=== PATIENT | male | born 1950 | race Caucasian/White ===

== ENCOUNTER 2024-11-01 04:22 | Observation (INO) ==
--- NOTE | 2024-11-01 04:30 | Emergency Department Note ---
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 They report they were concerned due to the patient's history where he was diagnosed with hemorrhagic stroke but his only symptom was feeling slight neck pain at the time. Otherwise patient denies any fevers, chills, cough, congestion, chest pain or shortness of breath. On evaluation the patient no acute distress, afebrile with heart in the 110s and vital signs otherwise stable. He appears clinically dry. Exhibits no focal neurologic deficits. EKG demonstrates atrial fibrillation in the 100s without overt acute ischemia. Chest x-ray negative for acute cardiopulmonary process per my preliminary independent or potation. WBC, H/H and platelets within normal limits. Chemistry without metabolic acidosis. Electrolytes and LFTs without significant abnormality. High- sensitivity troponin 4.6, within normal limits. Lipase is normal. TSH within normal limits. UA without evidence of infection. CT of the head was performed and was negative for acute abnormalities evidence of prior IPH with encephalomalacia is noted. Given the patient's new onset atrial fibrillation in setting of his history of hypertension and IPH the patient and his daughter agree with plan for admission for further management. Case was discussed with Dr. Cottrell, [facility] [place] hospitalist, who will evaluate the patient for admission. Further management and consideration of anticoagulation per admitting team. Triage Nursing notes reviewed and agree them. Prior/external medical records reviewed Vital Signs: reviewed Differential diagnosis: Premature contractions, electrolyte abnormality, cardiac dysrhythmia, thyroid dysfunction, pulmonary embolism, infection, gastrointestinal, as well as other pathologies. ER treatment provided: See below. Diagnostics interpreted by me: ECG 0425: Atrial fibrillation with RVR, 103 bpm, no ectopy, no overt ST elevation or depression, QTc 440, QRS 84. ECG 0623:Atrial fibrillation 89 bpm, no ectopy, no overt ST elevation or depression, QTc 428, QRS 86. Cardiac Monitoring: An order for continuous cardiac monitoring was placed and demonstrated atrial fibrillation, RVR, 103 bpm, no ectopy. Laboratory studies: See below Imaging studies: See below Consultation(s): Dr. Cottrell, [facility] [place] hospitalist. HPI: Per MDM. ROS: See above HPI for pertinent positives & negatives. A total of 10 systems reviewed and were otherwise negative. VITALS:See Below PHYSICAL EXAMINATION: GENERAL: Awake, alert, well-appearing, in no distress HENT: Normocephalic, atraumatic. Oropharynx with dry mucous membranes and otherwise unremarkable. EYES: Normal conjunctiva. Sclera non-icteric. NECK: Supple. No nuchal rigidity. FROM. No JVD. RESPIRATORY: Clear to auscultation. CARDIAC: Tachycardic rate, irregular rhythm. Extremities warm and well perfused. Pulses equal. ABDOMEN: Soft, non-distended. No tenderness to palpation. No rebound or guarding. No masses. MUSCULOSKELETAL: Chest examination reveals no tenderness. The back is symmetrical on inspection without obvious abnormality. There is no CVA tenderness to palpation. No joint edema. LOWER EXTREMITIES: Calves are equal size bilaterally and non-tender. No edema. No discoloration. NEURO: Cranial nerves II-XII grossly intact. 5/5 strength and SILT x 4 extremities. Cerebellar function intact including [id number], alternating palms. SKIN: No rash or jaundice noted. Leon Tolliver MD Past Med/Surg History Problem List (Updated 11/01/24 @ 16:50 by Leon Tolliver MD) Atrial fibrillation with rapid ventricular response (Acute) Hypertension (Acute) Atrial fibrillation, new onset (Acute) Positive colorectal cancer screening using Cologuard test Mitral regurgitation Premature atrial contractions Hypertension Hyperlipidemia Urinary hesitancy (Acute) Medical History Hyperlipidemia diet controlled, "good currently" Hypertension Premature atrial contractions f/u travis can cardio. 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 Ended up being an intraparenchymal hematoma" H/O detached retina repair 2015, right eye H/O non-cataract eye surgery laser surgery on each eye in dr's office Status post cataract surgery duplicate Family History (Updated 11/01/24 @ 08:00 by Karsten Cottrell MD) Mother , age 92 Dementia Wernicke-Korsakoff syndrome Alcohol dependence Father Cancer Brother Parkinson disease Denies family history of Ovarian cancer Prostate cancer Cerebral aneurysm Myocardial infarction Breast cancer Colorectal cancer Social History (Updated 11/01/24 @ 08:01 by Karsten Cottrell MD) Smoking Status: Light tobacco smoker Tobacco Type: Pipe and Smokeless Tobacco (Dip or Chew) Age Started Using Tobacco: 19; Cigarettes Per Day: occasional; Second Hand Exposure: Yes (hx as child); Do You Dip or Chew Tobacco: Yes (advised); Hx Alcohol Use: No Hx Substance Use: No Preferred Language: Kazakh Communication Ability: Effective Visual Impairment: No Limitations Hearing Ability: Normal Phlebotomy Director Required: No Beliefs That Will Affect Care: None marital status: Current Living Situation: Spouse current occupational status: retired 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 [employer] How many Children do You have: 2 Other Information That Helps Us Care for You: No Feels Safe at Home: Yes Safety Concerns: Feels Safe At This Time Childhood Exposure to Second-Hand Smoke: Yes Diet: regular Dental Care, Regularly: Yes Physical Activity Frequency: Daily Physical Activity Frequency Comment: weight lifting, walking Seatbelt Use: always Sunscreen Use: No Assistive Devices: Glasses Allergies Allergies Allergy/AdvReac Type Severity Reaction Status Date / Time No Known Allergies Allergy Verified 08/03/24 09:55 Home Meds Home Medications Medication Instructions Recorded Confirmed amlodipine 5 mg tablet 5 mg PO QAM 03/03/24 11/01/24 Previous Rx's Medication Instructions Recorded meclizine 25 mg tablet 25 mg PO TID PRN dizziness #30 tabs 05/09/24 metoprolol succinate 25 mg 25 mg PO QAM #90 tabs 08/03/24 tablet,extended release 24 hr Results & Data (ED) Vital Signs Vital Signs - 24 hr 11/01/24 04:25 11/01/24 04:30 11/01/24 04:31 Temperature 36.5 C Temperature Source Oral Pulse Rate 118 H 111 H 116 H Pulse Rate [Apical] Pulse Rhythm Regular Pulse Rhythm [Apical] Pulse Strength [Apical] Respiratory Rate 16 18 Respiratory Effort / Characteristics Non-Labored Spontaneous Respiratory Depth Normal Respiratory Pattern Regular Blood Pressure 140/86 Blood Pressure [Right Arm] Blood Pressure Mean 104 Blood Pressure Mean [Right Arm] Pulse Oximetry 100 99 Oxygen Delivery Method Room Air Room Air Sepsis Recent Fever Within 48 Hours No Sepsis New/Unexplained Change in Mental Status N/A Sepsis Action Taken by Nursing No Action Required 11/01/24 04:40 11/01/24 06:16 11/01/24 07:03 Temperature Temperature Source Pulse Rate Pulse Rate [Apical] 85 104 H Pulse Rhythm Pulse Rhythm [Apical] Regular Pulse Strength [Apical] Normal Respiratory Rate 16 20 Respiratory Effort / Characteristics Non-Labored Spontaneous Non-Labored Respiratory Depth Normal Normal Respiratory Pattern Blood Pressure Blood Pressure [Right Arm] 121/88 135/86 Blood Pressure Mean Blood Pressure Mean [Right Arm] 99 102 Pulse Oximetry 100 100 94 Oxygen Delivery Method Room Air Room Air Sepsis Recent Fever Within 48 Hours Sepsis New/Unexplained Change in Mental Status Sepsis Action Taken by Nursing Laboratory Data Attestation: I reviewed the patient's lab results. 11/01/24 04:28 11/01/24 04:28 Lab Results 11/01/24 11/01/24 11/01/24 Range/Units 04:25 04:28 04:40 WBC 6.23 (4.8-10.8) K/ul RBC 6.36 H (4.70-6.10) M/uL Hgb 17.3 (14.0-18.0) g/dl POC Hgb 17.7 (14.0-18.0) g/dl Hct 51.3 (42.0-52.0) % POC Hct 52 (42-52) % MCV 80.7 (80.0-100.0) fL MCH 27.2 (25.0-34.0) pg MCHC 33.7 (32.0-36.0) g/dL RDW Std Deviation 39.3 (36.4-46.3) fL RDW Coeff of Marah 13.8 (11.5-14.5) % Plt Count 212 (130-400) K/uL MPV 9.6 (9.4-12.4) fL Immature Gran % (Auto) 0.5 % Neut % (Auto) 61.9 % Lymph % (Auto) 24.2 % Harrison % (Auto) 8.5 % Eos % (Auto) 4.3 % Baso % (Auto) 0.6 % Neut # (Auto) 3.85 (1.40-6.50) K/uL Lymph # (Auto) 1.51 (1.20-3.40) K/uL Harrison # (Auto) 0.53 (0.11-0.59) K/uL Eos # (Auto) 0.27 (0.00-0.50) K/uL Baso # (Auto) 0.04 (0.00-0.20) K/uL Immature Gran # (Auto) 0.03 (0.01-0.20) K/uL PT 10.9 (9.0-12.0) Seconds INR 1.0 (0.9-1.1) POC Sodium 141 (135-144) mmol/L Sodium 140 (136-145) mmol/L POC Potassium 3.6 (3.3-5.0) mmol/L Potassium 3.6 (3.5-5.1) mmol/L POC Chloride 106 (101-112) mmol/L Chloride 107 (98-107) mmol/L Carbon Dioxide 25 (21-32) mmol/L POC Total CO2 24 (24-31) mmol/L Anion Gap 8 (3-11) POC Anion Gap 15.0 L (16-25) mmol/L POC BUN 13 (7-18) mg/dl BUN 13 (6-23) mg/dl Creatinine 0.99 (0.6-1.4) mg/dl POC Creatinine 1.0 (0.6-1.3) mg/dl Est Cr Clr Drug Dosing 62.2 ml/min eGFR 78.95 BUN/Creatinine Ratio 13.1 (10-20) Glucose 104 H (70-99(Fasting)) mg/dl POC Glucose (other) 104 H (70-99) mg/dl Estimat Average Glucose 123 mg/dl Hemoglobin A1c 5.9 H (4.5-5.6) % Calcium 9.3 (8.6-10.3) mg/dl POC Ioniz Calcium Oumar 1.17 (1.12-1.32) mmol/l Phosphorus 3.3 (2.5-4.9) mg/dl Magnesium 2.3 (1.7-2.4) mg/dl Total Bilirubin 0.7 (0.2-1.0) mg/dl AST 13 (13-39) U/L ALT 14 (7-52) U/L Alkaline Phosphatase 108 H (34-104) U/L Troponin I High Sens 4.6 (0-20) pg/ml Total Protein 7.2 (6.0-8.3) gm/dl Albumin 4.4 (3.4-5.0) gm/dl Globulin 2.8 (2.5-4.0) gm/dl Albumin/Globulin Ratio 1.6 (0.9-2) Lipase 34 (11-82) U/L TSH 3.896 (0.300-4.500) uIu/ml Free T3 3.72 (2.3-4.2) pg/ml Urine Color Urine Appearance (Clear) Urine pH (4.5-7.5) Ur Specific Franklin (1.000-1.030) Urine Protein (Negative) Urine Glucose (UA) (Negative) Urine Ketones (Negative) Urine Blood (Negative) Urine Nitrite (Negative) Urine Bilirubin (Negative) Urine Urobilinogen (Negative) Ur Leukocyte Esterase (Negative) Urine Comment 11/01/24 Range/Units 04:50 WBC (4.8-10.8) K/ul RBC (4.70-6.10) M/uL Hgb (14.0-18.0) g/dl POC Hgb (14.0-18.0) g/dl Hct (42.0-52.0) % POC Hct (42-52) % MCV (80.0-100.0) fL MCH (25.0-34.0) pg MCHC (32.0-36.0) g/dL RDW Std Deviation (36.4-46.3) fL RDW Coeff of Marah (11.5-14.5) % Plt Count (130-400) K/uL MPV (9.4-12.4) fL Immature Gran % (Auto) % Neut % (Auto) % Lymph % (Auto) % Harrison % (Auto) % Eos % (Auto) % Baso % (Auto) % Neut # (Auto) (1.40-6.50) K/uL Lymph # (Auto) (1.20-3.40) K/uL Harrison # (Auto) (0.11-0.59) K/uL Eos # (Auto) (0.00-0.50) K/uL Baso # (Auto) (0.00-0.20) K/uL Immature Gran # (Auto) (0.01-0.20) K/uL PT (9.0-12.0) Seconds INR (0.9-1.1) POC Sodium (135-144) mmol/L Sodium (136-145) mmol/L POC Potassium (3.3-5.0) mmol/L Potassium (3.5-5.1) mmol/L POC Chloride (101-112) mmol/L Chloride (98-107) mmol/L Carbon Dioxide (21-32) mmol/L POC Total CO2 (24-31) mmol/L Anion Gap (3-11) POC Anion Gap (16-25) mmol/L POC BUN (7-18) mg/dl BUN (6-23) mg/dl Creatinine (0.6-1.4) mg/dl POC Creatinine (0.6-1.3) mg/dl Est Cr Clr Drug Dosing ml/min eGFR BUN/Creatinine Ratio (10-20) Glucose (70-99(Fasting)) mg/dl POC Glucose (other) (70-99) mg/dl Estimat Average Glucose mg/dl Hemoglobin A1c (4.5-5.6) % Calcium (8.6-10.3) mg/dl POC Ioniz Calcium Oumar (1.12-1.32) mmol/l Phosphorus (2.5-4.9) mg/dl Magnesium (1.7-2.4) mg/dl Total Bilirubin (0.2-1.0) mg/dl AST (13-39) U/L ALT (7-52) U/L Alkaline Phosphatase (34-104) U/L Troponin I High Sens (0-20) pg/ml Total Protein (6.0-8.3) gm/dl Albumin (3.4-5.0) gm/dl Globulin (2.5-4.0) gm/dl Albumin/Globulin Ratio (0.9-2) Lipase (11-82) U/L TSH (0.300-4.500) uIu/ml Free T3 (2.3-4.2) pg/ml Urine Color Yellow Urine Appearance Clear (Clear) Urine pH 6.5 (4.5-7.5) Ur Specific Franklin 1.007 (1.000-1.030) Urine Protein Negative (Negative) Urine Glucose (UA) Negative (Negative) Urine Ketones Negative (Negative) Urine Blood Negative (Negative) Urine Nitrite Negative (Negative) Urine Bilirubin Negative (Negative) Urine Urobilinogen Negative (Negative) Ur Leukocyte Esterase Negative (Negative) Urine Comment Administered Medications Metoprolol Succinate (Metoprolol Succ 25mg Ext Rel Tab) 25 mg PO QAM BETTY Stop: 12/01/24 09:29 Last Admin: 11/01/24 10:40 Dose: Not Given Documented By: Discontinued Medications Sodium Chloride (Nss) 500 mls @ 999 mls/hr IV .Q31M ONE Stop: 11/01/24 05:03 Last Infusion: 11/01/24 06:17 Dose: Infused Documented By: [facility] Admin: 11/01/24 05:04 Dose: 999 mls/hr Documented By: [facility] Imaging Data Radiologist's Impression: Chest X-Ray 11/01/24 04:33 EXAM: XR chest 1V portable CLINICAL HISTORY: Chest pain, nonspecific TECHNIQUE: An X-ray image of the chest is obtained in AP projection. COMPARISON: 05/09/2024 CR. FINDINGS: Pulmonary Parenchyma: Lungs are clear bilaterally. No evidence of consolidation, collapse, or focal opacities. No pulmonary nodules are identified. No evidence of pleural effusion or pleural thickening. Heart and Mediastinum: Heart size and shape are normal. No mediastinal widening or masses. No hilar or mediastinal lymphadenopathy. Bony Thorax: Bony thorax appears intact without fractures or deformities. Soft Tissues: Soft tissues overlying the chest wall are unremarkable. IMPRESSION: 1. No acute cardiopulmonary abnormalities are identified. 2. No significant interval changes. Electronically signed by Manuelito Blake 11-01-2024 06:[address] 11/01/24 04:44 EXAM: CT head/brain wo con CLINICAL HISTORY: dizziness, h/o ICH TECHNIQUE: Multiple axial images are obtained from the skull base to the vertex without contrast. CT scan was performed according to ALARA (as low as reasonable achievable). 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 FINDINGS: There is cerebral atrophy. Focal encephalomalacia/gliosis noted involving right parietal lobe cortex, subcortical and periventricular white matter- sequelae of prior insult. No evidence of space occupying lesion, hemorrhage, edema, mass effect, midline shift, extra axial collection, or hydrocephalus is noted. Basal cisterns are symmetric and normal in size and configuration. There are scattered periventricular hypodensities as can be seen with chronic microvascular ischemic changes. The espinoza-white matter differentiation is preserved. Visualized paranasal sinuses and mastoid air cells are well aerated. Orbital contents are within normal limits. Bony structures are intact. IMPRESSION: 1. No evidence of acute intracranial abnormality is demonstrated. 2. Chronic microvascular ischemic changes.-stable. 3. Cerebral atrophy.-stable. 4. Focal encephalomalacia/gliosis noted involving right parietal lobe cortex, subcortical and periventricular white matter- sequelae of prior insult. ( prior right parietal hemorrhagic component is completely resolved in present scan). Electronically signed by Guero Mix 11-01-2024 06:08 AM Discharge Plan Visit Data Chief Complaint: Hypertension Stated Complaint: HYPERTENSION ED Provider: Leon Tolliver Discharge Problem: Atrial fibrillation, new onset, Hypertension, Atrial fibrillation with rapid ventricular response Patient Disposition: Admitted As Inpatient Condition: Fair Discharge Instructions Interventions: ED Discharge Assessment Last Done: 11/01/24 08:57 Discharge Problem: Hypertension Qualifiers: Hypertension type: unspecified Qualified Code(s): I10 - Essential (primary) hypertension
[2024-11-01 04:53] LABS: iSTAT Hemoglobin 17.7 g/dl (14.0-18.0); iSTAT Ionized Calcium 1.17 mmol/l (1.12-1.32); iSTAT Potassium 3.6 mmol/L (3.3-5.0)
[2024-11-01 04:53] LABS: Prothrombin Time 10.9 Seconds (9.0-12.0)
[2024-11-01 04:56] LABS: Basophils # (auto) 0.04 K/uL (0.00-0.20); Basophils % (auto) 0.6 %; Eosinophils # (auto) 0.27 K/uL (0.00-0.50); Eosinophils % (auto) 4.3 %; Hematocrit (blood only) 51.3 % (42.0-52.0); Hemoglobin 17.3 g/dl (14.0-18.0); Immature Granulocytes # (auto) 0.03 K/uL (0.01-0.20); Immature Granulocytes % (auto) 0.5 %; Lymphocytes # (auto) 1.51 K/uL (1.20-3.40); Lymphocytes % (auto) 24.2 %; Mean Corpuscular Hemoglobin 27.2 pg (25.0-34.0); Mean Corpuscular Hgb Conc 33.7 g/dL (32.0-36.0); Mean Corpuscular Volume 80.7 fL (80.0-100.0); Mean Platelet Volume 9.6 fL (9.4-12.4); Monocytes # (auto) 0.53 K/uL (0.11-0.59); Monocytes % (auto) 8.5 %; Neutrophils # (auto) 3.85 K/uL (1.40-6.50); Neutrophils % (auto) 61.9 %; Platelet Count 212 K/uL (130-400); RDW Coefficient of Variation 13.8 % (11.5-14.5); RDW Standard Deviation 39.3 fL (36.4-46.3); Red Blood Count 6.36 M/uL (4.70-6.10); White Blood Count 6.23 K/ul (4.8-10.8)
[2024-11-01 05:03] LABS: Appearance Urine Clear (Clear); Bilirubin Urine Negative (Negative); Blood Urine Negative (Negative); Color Urine Yellow; Glucose Urine UA Negative (Negative); Ketones Urine Negative (Negative); Leukocyte Esterase Urine Negative (Negative); Nitrite Urine Negative (Negative); Protein Urine Negative (Negative); Specific Gravity Urine 1.007 (1.000-1.030); Urobilinogen Urine Negative (Negative); pH Urine 6.5 (4.5-7.5)
[2024-11-01] MEDS: SODIUM CHLORIDE 0.9% 500 ML IV ONE (05:04)
[2024-11-01 05:08] LABS: Troponin I High Sensitivity 4.6 pg/ml (0-20)
[2024-11-01 05:17] LABS: Thyroid Stimulating Hormone 3.896 uIu/ml (0.300-4.500)
[2024-11-01 05:22] LABS: Bilirubin,Total 0.7 mg/dl (0.2-1.0); Calcium 9.3 mg/dl (8.6-10.3); Magnesium 2.3 mg/dl (1.7-2.4); Potassium 3.6 mmol/L (3.5-5.1)
[2024-11-01 05:28] LABS: Albumin Globulin Ratio 1.6 (0.9-2); BUN Creatinine Ratio 13.1 (10-20); Creatinine Clr Calc Pharmacy 62.2 ml/min; Globulin 2.8 gm/dl (2.5-4.0); Phosphorus 3.3 mg/dl (2.5-4.9); Total Protein 7.2 gm/dl (6.0-8.3)
--- NOTE | 2024-11-01 06:06 | XRay Report ---
EXAM: XR chest 1V portable CLINICAL HISTORY: Chest pain, nonspecific TECHNIQUE: An X-ray image of the chest is obtained in AP projection. COMPARISON: 05/09/2024 CR. FINDINGS: Pulmonary Parenchyma: Lungs are clear bilaterally. No evidence of consolidation, collapse, or focal opacities. No pulmonary nodules are identified. No evidence of pleural effusion or pleural thickening. Heart and Mediastinum: Heart size and shape are normal. No mediastinal widening or masses. No hilar or mediastinal lymphadenopathy. Bony Thorax: Bony thorax appears intact without fractures or deformities. Soft Tissues: Soft tissues overlying the chest wall are unremarkable. IMPRESSION: 1. No acute cardiopulmonary abnormalities are identified. 2. No significant interval changes. Electronically signed by Manuelito Blake 11-01-2024 06:05 AM
--- NOTE | 2024-11-01 06:09 | CT Scan Report ---
EXAM: CT head/brain wo con CLINICAL HISTORY: dizziness, h/o ICH TECHNIQUE: Multiple axial images are obtained from the skull base to the vertex without contrast. CT scan was performed according to ALARA (as low as reasonable achievable). 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 FINDINGS: There is cerebral atrophy. Focal encephalomalacia/gliosis noted involving right parietal lobe cortex, subcortical and periventricular white matter- sequelae of prior insult. No evidence of space occupying lesion, hemorrhage, edema, mass effect, midline shift, extra axial collection, or hydrocephalus is noted. Basal cisterns are symmetric and normal in size and configuration. There are scattered periventricular hypodensities as can be seen with chronic microvascular ischemic changes. The espinoza-white matter differentiation is preserved. Visualized paranasal sinuses and mastoid air cells are well aerated. Orbital contents are within normal limits. Bony structures are intact. IMPRESSION: 1. No evidence of acute intracranial abnormality is demonstrated. 2. Chronic microvascular ischemic changes.-stable. 3. Cerebral atrophy.-stable. 4. Focal encephalomalacia/gliosis noted involving right parietal lobe cortex, subcortical and periventricular white matter- sequelae of prior insult. ( prior right parietal hemorrhagic component is completely resolved in present scan). Electronically signed by Guero Mix 11-01-2024 06:08 AM
--- NOTE | 2024-11-01 07:23 | History & Physical Report ---
Date of Service November 01, 2024 Assessment & Plan (1) Atrial fibrillation with rapid ventricular response: (2) Hypertension: (3) Hyperlipidemia: (4) Intraparenchymal hematoma of brain: Plan Very pleasant 74yo male with history of HTN, documented PACs, and spontaneous intracranial hemorrhage requiring craniotomy ([facility] - 07/2023) who presents after waking up at ~0330 with severe sweats/feeling hot. He did not have any palpitations, dyspnea or chest pain. He denied headache to me, but there was report of a fleeting headache around the time of his symptoms. He checked his BP at home and it was elevated (190 systolic). His pulse was also elevated in the 160s. Due to these symptoms he came via EMS to [facility] to be evaluated. Upon presentation he was found to be in rapid a.fib. #a.fib with RVR - -rates have improved in the ER with IV fluids and time -he was already taking metoprolol succinate at home 25mg daily for HTN - will continue this for rate control -titrate metoprolol for optimal rates -suspect he converted to a.fib this am when he awoke with sweats and HR was found to be in the 160s -however, it is also possible that he has been in it longer -K, mag, and TSH all wnl -obtain echo to assess valve function and LV function -CHADS-VASc is 3 (age, HTN); ideally he should have anticoagulation, but I am uncertain if he is candidate for such given his prior spontaneous intracranial hemorrhage -will consult [facility] [place] [place] Neurology to assess his candidacy for systemic anticoagulation -consult [facility] [place] [place] Cardiology as well #history of intracranial hemorrhage/hematoma requiring craniotomy - 07/2023 - -per records it was uncertain what led to his event -no h/o aneurysm -no trauma -CAA (cerebral amyloid angiopathy)? -other cause? -I can't see he ever had CTA head or MRA head to r/o aneurysm -consult Dr Franco from neurology for his opinion if patient is - or will ever be - an anticoagulation candidate #hypertension - -hold amlodipine in the event we have to titrate meto succinate for the a.fib #episode of sweats - -2nd to rapid a.fib? -ischemia? -other? -first troponin was negative; check 1 more troponin to r/o ACS patient's daughter updated at bedside History of Present Illness Chief Complaint: sweats, tachycardia Primary Care Provider: Dyllan Bravo MD Very pleasant 74yo male with history of HTN, documented PACs, and spontaneous intracranial hemorrhage requiring craniotomy ([facility] - 07/2023) who presents after waking up at ~0330 with severe sweats/feeling hot. He did not have any palpitations, dyspnea or chest pain. He denied headache to me, but there was report of a fleeting headache around the time of his symptoms. He checked his BP at home and it was elevated (190 systolic). His pulse was also elevated in the 160s. Due to these symptoms he came via EMS to [facility] to be evaluated. Upon presentation he was found to be in rapid a.fib. During my assessment he reports feeling well. No further sweats. Again no chest pain, palpitations, dyspnea or other cardiopulmonary symptoms. Denies any recent illness. Denies recent travel. He admits to significant stress related to his 's health. She has been ill over the last few days and ultimately was admitted to [facility] on 10/31/24. He has been sleeping very poorly. Allergies Allergy/AdvReac Type Severity Reaction Status Date / Time No Known Allergies Allergy Verified 08/03/24 09:55 Home Medications Medication Instructions Recorded Confirmed Type amlodipine 5 mg tablet 5 mg PO QAM 03/03/24 11/01/24 History meclizine 25 mg tablet 25 mg PO TID PRN dizziness #30 tabs 05/09/24 11/01/24 Rx metoprolol succinate 25 mg 25 mg PO QAM #90 tabs 08/03/24 11/01/24 Rx tablet,extended release 24 hr Past Med/Surg History Problem List Atrial fibrillation with rapid ventricular response (Acute) Hypertension (Acute) Atrial fibrillation, new onset (Acute) Positive colorectal cancer screening using Cologuard test Mitral regurgitation Premature atrial contractions Hypertension Hyperlipidemia Urinary hesitancy (Acute) Medical History Hyperlipidemia diet controlled, "good currently" Hypertension Premature atrial contractions f/u travis can cardio. Mitral regurgitation f/u travis can cardio Intraparenchymal hematoma of brain (07/30/23) "told this had stemmed from a stroke at some point; [place] [facility] was believed to be a [place] and this is what was found instead, had lost left peripheral vision and slowly regained it over several months" Hypergammaglobulinemia hx Sensorineural hearing loss (SNHL) of both ears Surgical History Hx of colonoscopy Hx of bilateral cataract extraction H/O [place] [facility] "thought he had a brain tumor and when they went in they coul dn't find one. Ended up being an intraparenchymal hematoma" H/O detached retina repair 2015, right eye H/O non-cataract eye surgery laser surgery on each eye in dr's office Status post cataract surgery duplicate Family History (Updated 11/01/24 @ 08:00 by Karsten Cottrell MD) Mother , age 92 Dementia Wernicke-Korsakoff syndrome Alcohol dependence Father Cancer Brother Parkinson disease Denies family history of Ovarian cancer Prostate cancer Cerebral aneurysm Myocardial infarction Breast cancer Colorectal cancer Social History (Updated 11/01/24 @ 08:01 by Karsten Cottrell MD) Smoking Status: Light tobacco smoker Tobacco Type: Pipe and Smokeless Tobacco (Dip or Chew) Age Started Using Tobacco: 19; Cigarettes Per Day: occasional; Second Hand Exposure: Yes (hx as child); Do You Dip or Chew Tobacco: Yes (advised); Hx Alcohol Use: No Hx Substance Use: No Preferred Language: Yakut Communication Ability: Effective Visual Impairment: No Limitations Hearing Ability: Normal Fruit And Vegetable Packer Required: No Beliefs That Will Affect Care: None marital status: Current Living Situation: Spouse current occupational status: retired 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 [employer] How many Children do You have: 2 Feels Safe at Home: Yes Childhood Exposure to Second-Hand Smoke: Yes Diet: regular Dental Care, Regularly: Yes Physical Activity Frequency: Daily Physical Activity Frequency Comment: weight lifting, walking Seatbelt Use: always Sunscreen Use: No Assistive Devices: Glasses Review of Systems Review of Systems: gen - no fevers or chills; had sweats that woke him from sleep; no weight change; eating well eyes - chronic peripheral vision loss from his intracerebral hemorrhage 2023 HENT - no runny nose, sore throat, ear pain CV - no chest pain, palpitations, edema pulm - no dyspnea, no BELL, no cough GI - no abd pain or nausea/emesis/diarrhea/blood in stool - no dysuria, some frequency and stream issues musculo - no joint pains endo - no diabetes skin - no rash psych - some anxiety, some sleep issues neuro - ?headache early this am, now resolved; no focal motor weakness Physical Exam Physical Exam: gen - NAD, looks well, awake/alert eyes - PERRL HENT - MMM, no lesions neck - no JVD, no bruits, no goiter heart - irregularly irregular, s1, s2, no murmur; rate about 100 lungs - CTA b/l abd - soft NT ND BS+ ext - no edema, pulses 2+ b/l neuro - strength 5/5 x 4 exts; DTRs 2+ b/l upper & lower extremities skin - no rash psych - a/o x 3 Results & Data Results & Data Vital Signs (Past 12 Hours) Vital Signs Temp Pulse Pulse Resp BP BP Pulse Ox 11/01/24 07:03 104 H 20 135/86 94 11/01/24 06:16 85 16 121/88 100 11/01/24 04:40 100 11/01/24 04:31 116 H 11/01/24 04:30 36.5 C 111 H 18 140/86 99 11/01/24 04:25 118 H 16 100 O2 Del Method 11/01/24 07:03 Room Air 11/01/24 06:16 Room Air 11/01/24 04:40 11/01/24 04:31 11/01/24 04:30 Room Air 11/01/24 04:25 Room Air Laboratory Results Laboratory Results - last 24 hr 11/01/24 11/01/24 11/01/24 04:28 04:40 04:50 WBC 6.23 RBC 6.36 H Hgb 17.3 POC Hgb 17.7 Hct 51.3 POC Hct 52 MCV 80.7 MCH 27.2 MCHC 33.7 RDW Std Deviation 39.3 RDW Coeff of Marah 13.8 Plt Count 212 MPV 9.6 Immature Gran % (Auto) 0.5 Neut % (Auto) 61.9 Lymph % (Auto) 24.2 [place] % (Auto) 8.5 Eos % (Auto) 4.3 Baso % (Auto) 0.6 Neut # (Auto) 3.85 Lymph # (Auto) 1.51 [place] # (Auto) 0.53 Eos # (Auto) 0.27 Baso # (Auto) 0.04 Immature Gran # (Auto) 0.03 PT 10.9 INR 1.0 POC Sodium 141 Sodium 140 POC Potassium 3.6 Potassium 3.6 POC Chloride 106 Chloride 107 Carbon Dioxide 25 POC Total CO2 24 Anion Gap 8 POC Anion Gap 15.0 L POC BUN 13 BUN 13 Creatinine 0.99 POC Creatinine 1.0 Est Cr Clr Drug Dosing 62.2 eGFR 78.95 BUN/Creatinine Ratio 13.1 Glucose 104 H POC Glucose (other) 104 H Calcium 9.3 POC Ioniz Calcium Oumar 1.17 Phosphorus 3.3 Magnesium 2.3 Total Bilirubin 0.7 AST 13 ALT 14 Alkaline Phosphatase 108 H Troponin I High Sens 4.6 Total Protein 7.2 Albumin 4.4 Globulin 2.8 Albumin/Globulin Ratio 1.6 Lipase 34 TSH 3.896 Urine Color Yellow Urine Appearance Clear Urine pH 6.5 Ur Specific [place] 1.007 Urine Protein Negative Urine Glucose (UA) Negative Urine Ketones Negative Urine Blood Negative Urine Nitrite Negative Urine Bilirubin Negative Urine Urobilinogen Negative Ur Leukocyte Esterase Negative Urine Comment Diagnostic Findings Chest X-Ray 11/01/24 04:33 EXAM: XR chest 1V portable CLINICAL HISTORY: Chest pain, nonspecific TECHNIQUE: An X-ray image of the chest is obtained in AP projection. COMPARISON: 05/09/2024 CR. FINDINGS: Pulmonary Parenchyma: Lungs are clear bilaterally. No evidence of consolidation, collapse, or focal opacities. No pulmonary nodules are identified. No evidence of pleural effusion or pleural thickening. Heart and Mediastinum: Heart size and shape are normal. No mediastinal widening or masses. No hilar or mediastinal lymphadenopathy. Bony Thorax: Bony thorax appears intact without fractures or deformities. Soft Tissues: Soft tissues overlying the chest wall are unremarkable. IMPRESSION: 1. No acute cardiopulmonary abnormalities are identified. 2. No significant interval changes. Electronically signed by Manuelito Blake 11-01-2024 06:[address] 11/01/24 04:44 EXAM: CT head/brain wo con CLINICAL HISTORY: dizziness, h/o ICH TECHNIQUE: Multiple axial images are obtained from the skull base to the vertex without contrast. CT scan was performed according to ALARA (as low as reasonable achievable). COMPARISON: 07/29/2023 19:29:30 ELECTRONIC WIRER. FINDINGS: There is cerebral atrophy. Focal encephalomalacia/gliosis noted involving right parietal lobe cortex, subcortical and periventricular white matter- sequelae of prior insult. No evidence of space occupying lesion, hemorrhage, edema, mass effect, midline shift, extra axial collection, or hydrocephalus is noted. Basal cisterns are symmetric and normal in size and configuration. There are scattered periventricular hypodensities as can be seen with chronic microvascular ischemic changes. The espinoza-white matter differentiation is preserved. Visualized paranasal sinuses and mastoid air cells are well aerated. Orbital contents are within normal limits. Bony structures are intact. IMPRESSION: 1. No evidence of acute intracranial abnormality is demonstrated. 2. Chronic microvascular ischemic changes.-stable. 3. Cerebral atrophy.-stable. 4. Focal encephalomalacia/gliosis noted involving right parietal lobe cortex, subcortical and periventricular white matter- sequelae of prior insult. ( prior right parietal hemorrhagic component is completely resolved in present scan). Electronically signed by Guero Mix 11-01-2024 06:08 AM EKG - my reading - a.fib, rate 90s, no ST changes Code Status & VTE Plan Code Status full code PG Care Time/CCT Total # of Minutes Spent Total Time Spent with Patient: Total time spent is greater than 50% in coordination of care (as documented) at patient's floor/unit and/or counseling patient: Coding Level of Care Code 61337 INT INP/OBS CARE 2/55MIN Diagnoses Atrial fibrillation with rapid ventricular response I48.91 Hypertension I10 Pure hypercholesterolemia E78.00 Hyperlipidemia type: pure hypercholesterolemia Intraparenchymal hematoma of brain S06.33AA (3) Hyperlipidemia Hyperlipidemia type: pure hypercholesterolemia Qualified Code(s): E78.00 - Pure hypercholesterolemia, unspecified
[2024-11-01] MEDS ORDERED: MECLIZINE HCL 25 MG TAB PO PRN (09:22)
[2024-11-01] MEDS ORDERED: ACETAMINOPHEN 325 MG TAB PO PRN (09:22)
[2024-11-01] MEDS ORDERED: ONDANSETRON INJ 2 MG/ML 2 ML VIAL IV PRN (09:22)
[2024-11-01 09:24] LABS: Estimated Average Glucose 123 mg/dl; Hemoglobin A1C 5.9 % (4.5-5.6)
[2024-11-01] MEDS: METOPROLOL SUCC 25MG EXT REL TAB PO SCH (10:40)
[2024-11-01 12:18] VITALS: RESP 18
--- NOTE | 2024-11-01 12:58 | Hospitalist Progress Note ---
Date of Service November 01, 2024 Assessment & Plan (1) Atrial fibrillation with rapid ventricular response: Plan: New onset. Telemetry. Amlodipine has been discontinued. Free T3 and free T4 levels are pending. Cardiac echo was ordered and pending. Cardiology consultation is pending. I suspect metoprolol dosage will be increased and Eliquis added. (2) Hypertension: Plan: Continue metoprolol. Amlodipine has been discontinued. Will follow (3) Hyperlipidemia: Plan: Statin therapy (4) Intraparenchymal hematoma of brain: Plan: By history. He underwent previous craniotomy in August 01 for definitive treatment. Supportive care Plan Hopeful discharge to home within the next 2 to 3 days Admission and Anticipated Discharge Date Admission Date: November 01, 2024 Subjective Alert and oriented. No distress. Atrial fibrillation is new. Amlodipine has been discontinued. Telemetry. Cardiology consultation is pending. I suspect metoprolol dosage will be uptitrated. Cardiac echo report is pending. Free T3 and free T4 levels are pending. Review of Systems 2 Review of Systems: Constitutionalthe patient stated he felt hot last night and has some diaphoresis ENTno blurred vision, no double vision, no epistaxis, no sore throat Respiratoryno cough, no wheezing, no shortness of breath Cardiacdenies feeling palpitations. No chest discomfort. No syncope Darrius nausea, vomiting, diarrhea, melena, hematochezia GUno urinary retention, no urinary incontinence, no dysuria, no hematuria Musculoskeletalno joint pain, no muscle tenderness Skinno bruising, no rashes, no pruritus Neurono isolated weakness, no paresthesia, no weakness Psychno depression, no anxiety Physical Exam 2 Physical Exam: General-alert and oriented x3, no fever, no chills HEENT-head atraumatic and normocephalic, pupils equal and reactive to light, extraocular muscles intact Neck-no lymphadenopathy or thyromegaly, trachea midline Chest-clear to auscultation. No rales, wheezing or rhonchi Cardiac-mildly tachycardic irregular rate and rhythm. Normal S1 and S2 Abdomen -normal bowel sounds, no hepatosplenomegaly Extremities-no cyanosis, clubbing, or edema Neuro-cranial nerves II through XII intact, motor and sensory function within normal limits, strength symmetrical, no focal deficits Psych-normal affect, normal mood Results & Data Results & Data Vital Signs (Past 12 Hours) Vital Signs Temp Pulse Pulse Resp BP BP Pulse Ox 11/01/24 12:17 36.3 C L 62 18 118/73 94 11/01/24 11:38 11/01/24 09:26 36.3 C L 91 H 20 119/79 96 11/01/24 08:57 80 20 95 11/01/24 08:06 90 20 123/85 94 11/01/24 07:03 104 H 20 135/86 94 11/01/24 06:16 85 16 121/88 100 11/01/24 04:40 100 11/01/24 04:31 116 H 11/01/24 04:30 36.5 C 111 H 18 140/86 99 11/01/24 04:25 118 H 16 100 O2 Del Method 11/01/24 12:17 Room Air 11/01/24 11:38 Room Air 11/01/24 09:26 Room Air 11/01/24 08:57 Room Air 11/01/24 08:06 Room Air 11/01/24 07:03 Room Air 11/01/24 06:16 Room Air 11/01/24 04:40 11/01/24 04:31 11/01/24 04:30 Room Air 11/01/24 04:25 Room Air Laboratory Results 11/01/24 04:28 11/01/24 04:28 PG Care Time/CCT Total # of Minutes Spent Total Time Spent with Patient: Total time spent is greater than 50% in coordination of care (as documented) at patient's floor/unit and/or counseling patient: Coding Level of Care Code 80525 SUB INP/OBS CARE 3/50MIN Diagnoses Atrial fibrillation with rapid ventricular response I48.91 Hypertension I10 Pure hypercholesterolemia E78.00 Hyperlipidemia type: pure hypercholesterolemia Intraparenchymal hematoma of brain S06.33AA (3) Hyperlipidemia Hyperlipidemia type: pure hypercholesterolemia Qualified Code(s): E78.00 - Pure hypercholesterolemia, unspecified
--- NOTE | 2024-11-01 17:16 | Neurology Consultation ---
Date of Consultation November 01, 2024 Assessment & Plan (1) H/O brain surgery: (2) Nontraumatic lobar cerebral hemorrhage: (3) Atrial fibrillation with rapid ventricular response: Plan 74-year-old male with history of nontraumatic, spontaneous right parietal lobar hemorrhage occurring in July 2023, post craniotomy at [facility], no underlying lesion, metastatic deposit, or neoplasm. The lobar hemorrhage most likely due to age-related angiopathy, possibly amyloid angiopathy although no evidence of chronic microhemorrhage elsewhere on MRI. He now presents with new onset atrial fibrillation, no known history of cardioembolic stroke. He has no other significant cardiovascular risk factors other than hypertension. He does not have any significant residual neurologic deficits related to his nondominant parietal lobe hemorrhage, no obvious signs of visual or sensory neglect. Given his history of spontaneous lobar hemorrhage, I would recommend against anticoagulation going forward, in the context of his atrial fibrillation. I think he may be an appropriate candidate for left atrial appendage closure, Watchman device. Would consult cardiology for an opinion. Please call with any questions. History of Present Illness Reason for Consultation: History of intracranial hemorrhage, now with atrial fibrillation Requesting Physician: Simba Attending Physician: Karsten Cottrell MD History of Present Illness The patient is a 74-year-old right handed male with a history of spontaneous lobar right parieto-occipital hemorrhage that occurred in July 2023. He was initially seen at [facility], transferred to [facility] for neurosurgical care, underwent craniotomy. No underlying tumor or other lesion identified, felt to most likely have vasculopathy. He did have some mild visual difficulty off to the left after this event, significantly improved. No other neurologic deficits. He has had subsequent imaging including MRI and CT which revealed stability, chronic hemosiderin deposition in the area of prior hemorrhage, no other areas suggestive of microhemorrhage. He presented to the emergency department overnight with, feeling hot and flushed. Elevated heart rate, blood pressure, and feeling hot and flushed. Diagnosed with atrial fibrillation. Neurology consulted regarding medical management going forward, appropriateness for anticoagulation in the context of his history of spontaneous brain bleed. Currently, the patient does not have any specific or focal neurologic complaint. He denies headache, focal weakness, sensory loss, or change in speech or swallowing. A CT of the head completed earlier today was negative for acute process. Postoperative changes and associated encephalomalacia involving the right parietal lobe cortex observed. I did independently review these images. A previous brain MRI completed May 09, 2024 was negative for acute process as well. The study did reveal chronic hemosiderin deposition in the area of the previous hemorrhage. CTA of the head and neck completed at that time were unremarkable, no aneurysm, dissection, vascular occlusion, AVM, or other vascular lesion identified. An electrocardiogram has revealed atrial fibrillation. A previous echocardiogram completed in August 2023 was generally unremarkable, normal left atrial size, interatrial septum intact, left ventricle function grossly normal, EF 60 to 65%. No thrombus. No regional wall motion abnormalities. Allergies Allergy/AdvReac Type Severity Reaction Status Date / Time No Known Allergies Allergy Verified 08/03/24 09:55 Home Medications Medication Instructions Recorded Confirmed Type amlodipine 5 mg tablet 5 mg PO QAM 03/03/24 11/01/24 History meclizine 25 mg tablet 25 mg PO TID PRN dizziness #30 tabs 05/09/24 11/01/24 Rx metoprolol succinate 25 mg 25 mg PO QAM #90 tabs 08/03/24 11/01/24 Rx tablet,extended release 24 hr Patient History Medical History Hyperlipidemia diet controlled, "good currently" Hypertension Premature atrial contractions f/u travis can cardio. Mitral regurgitation f/u travis can cardio Intraparenchymal hematoma of brain (07/30/23) "told this had stemmed from a stroke at some point; taken to [facility] for what was believed to be a tumor and this is what was found instead, had lost left peripheral vision and slowly regained it over several months" Hypergammaglobulinemia hx Sensorineural hearing loss (SNHL) of both ears Surgical History Hx of colonoscopy Hx of bilateral cataract extraction H/O brain surgery 07/30/23, [facility], "thought he had a brain tumor and when they went in they couldn't find one. Ended up being an intraparenchymal hematoma" H/O detached retina repair 2015, right eye H/O non-cataract eye surgery laser surgery on each eye in dr's office Status post cataract surgery duplicate Family History (Updated 11/01/24 @ 08:00 by Karsten Cottrell MD) Mother , age 92 Dementia Wernicke-Korsakoff syndrome Alcohol dependence Father Cancer Brother Parkinson disease Denies family history of Ovarian cancer Prostate cancer Cerebral aneurysm Myocardial infarction Breast cancer Colorectal cancer Social History (Updated 11/01/24 @ 08:01 by Karsten Cottrell MD) Smoking Status: Light tobacco smoker Tobacco Type: Pipe and Smokeless Tobacco (Dip or Chew) Age Started Using Tobacco: 19; Cigarettes Per Day: occasional; Second Hand Exposure: Yes (hx as child); Do You Dip or Chew Tobacco: Yes (advised); Hx Alcohol Use: No Hx Substance Use: No Preferred Language: Czech Communication Ability: Effective Visual Impairment: No Limitations Hearing Ability: Normal Job Placement Officer Required: No Beliefs That Will Affect Care: None marital status: Current Living Situation: Spouse current occupational status: retired 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 [employer] How many Children do You have: 2 Other Information That Helps Us Care for You: No Feels Safe at Home: Yes Safety Concerns: Feels Safe At This Time Childhood Exposure to Second-Hand Smoke: Yes Diet: regular Dental Care, Regularly: Yes Physical Activity Frequency: Daily Physical Activity Frequency Comment: weight lifting, walking Seatbelt Use: always Sunscreen Use: No Assistive Devices: Glasses Review of Systems Constitutional: no fever and no chills Eyes: as per Subjective / HPI; no blind spots and no diplopia Ear, Nose, Mouth, Throat: no hearing loss Respiratory: no cough and no dyspnea Cardiovascular: no chest pain and no palpitations Gastrointestinal: no nausea and no vomiting Genitourinary: no dysuria Musculoskeletal: no myalgia Integumentary: no rash and no lesions Neurologic: as per Subjective / HPI; no gait abnormality, no localized weakness, no loss of sensation, no tremor(s) and no headache(s) Psychiatric: no depression and no anxiety Hematologic / Lymphatic: no easy bleeding and no easy bruising Exam (Neuro) Constitutional: well developed and well nourished; no acute distress Eyes: normal visual chadwick by confrontation, PERRL and EOM intact bilaterally; no nystagmus Neurologic: Oriented to:: Person, Place and Time Memory: Short Term Intact and Remote Intact Attention: Span Intact and Concentration Intact Speech Fluency: negative Dysarthria or Dysfluency Speech Aphasia: negative Aphasia Fund of Knowledge: Current Events, Past History and Vocabulary Cranial Nerve s: Normal II, III, IV, , V, VII, VIII, IX, X, XI and XII Motor Strength: Normal Lower Extremities and Normal Upper Extremities Motor Tone: Normal Lower Extremities and Normal Upper Extremities Muscle Bulk/Involuntary Movements: No Involuntary Movements; negative Muscle Atrophy Sensation: Light Touch Intact, Pain/Temperature Intact, Vibration Intact and Proprioception Intact Coordination: Normal; negative Limited Balance, Dysdiadochokinesia, Finger-Nose Abnormal or Heel-Lira Abnormal Deep Tendon Reflexes: Rt Triceps: 2+, Lt Triceps: 2+, Rt Biceps: 2+, Lt Biceps: 2+, Rt Brachioradialis: 2+, Lt Brachioradialis: 2+, Rt Patellar: 2+, Lt Patellar: 2+, Rt Ankle: 2+ and Lt Ankle: 2+ Special Tests: negative Babinski Present Gait: Normal Station and Gait Details: No signs of visual neglect, no signs of sensory neglect. Results & Data Vital Signs (Past 12 Hours) Vital Signs Temp Pulse Pulse Resp BP Pulse Ox O2 Del Method 11/01/24 16:28 36.4 C L 68 18 145/83 H 96 Room Air 11/01/24 14:03 58 L 11/01/24 12:17 36.3 C L 62 18 118/73 94 Room Air 11/01/24 11:38 Room Air 11/01/24 09:26 36.3 C L 91 H 20 119/79 96 Room Air 11/01/24 08:57 80 20 95 Room Air 11/01/24 08:06 90 20 123/85 94 Room Air 11/01/24 07:03 104 H 20 135/86 94 Room Air 11/01/24 06:16 85 16 121/88 100 Room Air Coding Level of Care Code 02777 INT INP/OBS CARE 3/75MIN Diagnoses H/O brain surgery Z98.890 Nontraumatic lobar cerebral hemorrhage I61.9 Atrial fibrillation with rapid ventricular response I48.91 Time Spent (min) 75 Comment Total time includes patient contact, chart review, counseling, note preparation
[2024-11-02 08:15] VITALS: PULSE 72
--- NOTE | 2024-11-02 09:07 | Cardiology Consultation ---
Date of Consultation November 02, 2024 Assessment & Plan (1) Paroxysmal atrial fibrillation: (2) Anticoagulation therapy not indicated: (3) Premature atrial contractions: (4) Hypertension: Plan 1. Paroxysmal atrial fibrillation: He now has documentation of paroxysmal atrial fibrillation, whether he has had this before or not is not clear. His heart rate was fast enough that he noticed it so it is possible this is his first episode, although asymptomatic episodes are relatively common. It was self-limiting and probably lasted less than 12 hours based on symptoms. It is likely that his burden is quite low. 2. Anticoagulation: In his case anticoagulation would carry significant risk, with brief self-limiting atrial fibrillation his stroke risk is quite low although technically he should be on an anticoagulant based on his [id number] score of 3. I would however not start anticoagulation at this time. I think sending him for an evaluation for a watchman is reasonable, note that this probably would require anticoagulation for some time after implant although not for the long run. That risk would have to be evaluated. I will make arrangements with [facility] for a referral. 3. Premature atrial contractions: He has a history of very frequent premature atrial contractions causing a generally irregular heart rate which might be difficult to distinguish from atrial fibrillation. Based on heart rate he may not have had atrial fibrillation before, or his burden might be quite low. We could consider loop recorder implantation to try to determine an atrial fibrillation burden, however those devices determine atrial fibrillation by irregularity as well and depending on how well the algorithm works it might be very misleading and might not be accurate. 4. Hypertension: He reports significant hypertension at home, here his blood pressure has been fairly good with only a few borderline high readings. At home he is reportedly on amlodipine and low-dose metoprolol succinate (25 mg) for blood pressure control. Here he appears to only be on metoprolol succinate 25 mg daily. Given that he presented with atrial fibrillation with somewhat rapid heart rate and beta-blockers may help with premature atrial beats I would recommend going up on the beta-timothy or considering a switch to diltiazem if he has side effects, this will probably help with his rhythm and hopefully control his blood pressure. History of Present Illness Reason for Consultation: Paroxysmal atrial fibrillation Attending Physician: Karsten Cottrell MD History of Present Illness This is a 74-year-old gentleman without a known history of cardiac disease who was noted by a home health nurse to have an irregular heartbeat. He was subsequently referred to Internal Medicine for evaluation. An outpatient monitor done in May 2023 was suggestive of atrial fibrillation and he was referred to the emergency room. At that time the EKG showed sinus rhythm and frequent PACs. There was no definite atrial fibrillation documented. Review of the outpatient monitoring did not indicate definite atrial fibrillation, just very frequent atrial ectopy producing an irregular heart rhythm. Fortunately he was not started on anticoagulation. He presented to the emergency room in July 29, 2019 for having suffered an intracranial hemorrhage. This required transfer to [facility] where he underwent a craniotomy and evacuation of hematoma. The source of bleeding was not defined. I believe it is considered to be due to an angiopathy. According to his he was advised not to take anticoagulants. He had been doing well in follow-up with continued irregular rhythm felt to be due to very frequent premature atrial beats not atrial fibrillation. He then presented to the emergency room on the morning of November 01, 2024 having woken up at around 3:30 in the morning noting that his heart rate was fast. Electrocardiography did show atrial fibrillation with a heart rate of just over 100. He also had significant hypertension at that time. He was seen by neurology on that day who felt there was significant risk of anticoagulation. He did spontaneously convert to sinus rhythm with premature atrial beats. Today he is feeling well, he notes resolution of his feelings of fast heart rate but remains aware of his irregular rhythm. He has been walking around the room and does not have any exertional symptoms. He does corroborate that he has not felt this fast heart rate before. Allergies Allergy/AdvReac Type Severity Reaction Status Date / Time No Known Allergies Allergy Verified 08/03/24 09:55 Home Medications Medication Instructions Recorded Confirmed Type amlodipine 5 mg tablet 5 mg PO QAM 03/03/24 11/01/24 History meclizine 25 mg tablet 25 mg PO TID PRN dizziness #30 tabs 05/09/24 11/01/24 Rx metoprolol succinate 25 mg 25 mg PO QAM #90 tabs 08/03/24 11/01/24 Rx tablet,extended release 24 hr Patient History Medical History Hyperlipidemia diet controlled, "good currently" Hypertension Premature atrial contractions f/u travis can cardio. Mitral regurgitation f/u travis can cardio Intraparenchymal hematoma of brain (07/30/23) "told this had stemmed from a stroke at some point; taken to [facility] for what was believed to be a tumor and this is what was found instead, had lost left peripheral vision and slowly regained it over several months" Hypergammaglobulinemia hx Sensorineural hearing loss (SNHL) of both ears Surgical History Hx of colonoscopy Hx of bilateral cataract extraction H/O brain surgery 07/30/23, [facility], "thought he had a brain tumor and when they went in they couldn't find one. Ended up being an intraparenchymal hematoma" H/O detached retina repair 2015, right eye H/O non-cataract eye surgery laser surgery on each eye in dr's office Status post cataract surgery duplicate Family History Mother , age 92 Dementia Wernicke-Korsakoff syndrome Alcohol dependence Father Cancer Brother Parkinson disease Denies family history of Ovarian cancer Prostate cancer Cerebral aneurysm Myocardial infarction Breast cancer Colorectal cancer Social History Smoking Status: Light tobacco smoker Tobacco Type: Pipe and Smokeless Tobacco (Dip or Chew) Age Started Using Tobacco: 19; Cigarettes Per Day: occasional; Second Hand Exposure: Yes (hx as child); Do You Dip or Chew Tobacco: Yes (advised); Hx Alcohol Use: No Hx Substance Use: No Preferred Language: Portuguese Communication Ability: Effective Visual Impairment: No Limitations Hearing Ability: Normal Feed Project Engineer Required: No Beliefs That Will Affect Care: None marital status: Current Living Situation: Spouse current occupational status: retired 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 [employer] How many Children do You have: 2 Other Information That Helps Us Care for You: No Feels Safe at Home: Yes Safety Concerns: Feels Safe At This Time Childhood Exposure to Second-Hand Smoke: Yes Diet: regular Dental Care, Regularly: Yes Physical Activity Frequency: Daily Physical Activity Frequency Comment: weight lifting, walking Seatbelt Use: always Sunscreen Use: No Assistive Devices: None Review of Systems Review of Systems: All systems reviewed & are unremarkable except as noted in HPI & below Physical Exam Physical Exam: Constitutional: Alert, cooperative and in no distress. HEENT: Unremarkable Neck: No jugular venous distention, carotid pulses are normal and equal bilaterally without bruits. Pulmonary: Clear to auscultation bilaterally. Cardiac: Somewhat irregular rhythm with no murmur, gallop or rub. Abdomen: Soft, nontender with normal bowel sounds. Extremities: No edema. Neurologic: No focal findings. Gait is steady. Skin: No rash, ecchymoses or petechiae. Results & Data Vital Signs (Past 12 Hours) Vital Signs Temp Pulse Pulse Resp BP BP Pulse Ox 11/02/24 07:56 36.9 C 72 18 127/77 96 11/02/24 03:26 36.8 C 54 L 18 134/76 94 11/01/24 23:32 36.4 C L 62 18 142/83 H 95 11/01/24 23:31 57 L 11/01/24 22:07 O2 Del Method 11/02/24 07:56 Room Air 11/02/24 03:26 Room Air 11/01/24 23:32 Room Air 11/01/24 23:31 11/01/24 22:07 Room Air Laboratory Results Intake and Output 11/01/24 11/02/24 11/02/24 22:59 06:59 14:59 Intake Total 200 / 460 200 / 460 Balance 200 / 460 200 / 460 Intake: Oral 200 / 460 200 / 460 Other: # Unmeasured Voids 2 1 Weight 81 kg Diagnostic Findings Telemetry: Atrial fibrillation with a heart rate just over 100 until around 10:30 AM on November 01, 2024. Since then sinus rhythm with frequent premature atrial beats. Echocardiogram: PG Care Time/CCT Total # of Minutes Spent Total Time Spent with Patient: Total time spent is greater than 50% in coordination of care (as documented) at patient's floor/unit and/or counseling patient: Coding Level of Care Code 36390 INT INP/OBS CARE 3/75MIN Diagnoses Paroxysmal atrial fibrillation I48.0 Anticoagulation therapy not indicated Z78.9 Premature atrial contractions I49.1 Hypertension I10 Hypertension type: unspecified (4) Hypertension Hypertension type: unspecified Qualified Code(s): I10 - Essential (primary) hypertension
[2024-11-02] MEDS: METOPROLOL SUCC 25MG EXT REL TAB PO STA (10:08)
--- NOTE | 2024-11-02 11:55 | Discharge Summary ---
Discharge Summary Date of Service November 02, 2024 Principal Dx & Hospital Course #1 = Principal Diagnosis (1) Atrial fibrillation with rapid ventricular response: New onset. Telemetry. Amlodipine has been discontinued. Free T3 and free T4 levels are normal. Cardiology consultation noted. Metoprolol XL has been uptitrated to 50 mg daily. He is not a candidate for systemic anticoagulation due to his history of intracerebral hemorrhage (2) Hypertension: Stable. Continue metoprolol. Amlodipine has been discontinued. Will follow (3) Hyperlipidemia: Stable. Statin therapy (4) Intraparenchymal hematoma of brain: By history. He underwent previous craniotomy in August 01 for definitive treatment. This history prevents initiation of systemic anticoagulation therapy. Plan Home today, November 02. Metoprolol dosage has been increased. Amlodipine has been discontinued. MCOT has been ordered Admission HPI Per Admitting Provider Very pleasant 74yo male with history of HTN, documented PACs, and spontaneous intracranial hemorrhage requiring craniotomy (Elizabeth - 07/2023) who presents after waking up at ~0330 with severe sweats/feeling hot. He did not have any palpitations, dyspnea or chest pain. He denied headache to me, but there was report of a fleeting headache around the time of his symptoms. He checked his BP at home and it was elevated (190 systolic). His pulse was also elevated in the 160s. Due to these symptoms he came via EMS to [facility] to be evaluated. Upon presentation he was found to be in rapid a.fib. During my assessment he reports feeling well. No further sweats. Again no chest pain, palpitations, dyspnea or other cardiopulmonary symptoms. Denies any recent illness. Denies recent travel. He admits to significant stress related to his 's health. She has been ill over the last few days and ultimately was admitted to [facility] on 10/31/24. He has been sleeping very poorly. Discharge Exam General-alert and oriented x3, no fever, no chills HEENT-head atraumatic and normocephalic, pupils equal and reactive to light, extraocular muscles intact Neck-no lymphadenopathy or thyromegaly, trachea midline Chest-clear to auscultation. No rales, wheezing or rhonchi Cardiac-normal rhythm, occasional premature beat. Normal S1 and S2 Abdomen -normal bowel sounds, no hepatosplenomegaly Extremities-no cyanosis, clubbing, or edema Neuro-cranial nerves II through XII intact, motor and sensory function within normal limits, strength symmetrical, no focal deficits Psych-normal affect, normal mood Discharge Plan Discharge Items Patient Disposition: Home - Self-Care Reason For Visit: AFIB WITH RVR Discharge Diagnosis: Paroxysmal atrial fibrillation with rapid ventricular rate Condition on Discharge: Good Activity: Resume your previous activity Activity Comment: Avoid overexertion until cleared by cardiology Non-emergency contact: Primary Care Provider and Stock Puller Call non-emergency contact if: you have any medication questions and your symptoms worsen Follow-up/Referrals: Dyllan Bravo MD [Primary Care Provider] - Diet: Regular and Heart Healthy Addtl Attending Provider Instructions: Metoprolol dosage has been increased to 50 mg daily. Amlodipine has been discontinued. Where outpatient heart monitor as directed and follow-up with primary care provider and efficiency miner blasting as soon as possible. Pending Studies at Discharge: No Stand-Alone Forms: xiao qu wu you, Smoking Cessation Medications and DC Order Prescriptions: New metoprolol succinate 50 mg Tablet Extended Release 24 Hr 50 mg PO QAM Qty: 30 0RF Continued meclizine 25 mg tablet 25 mg PO TID PRN (Reason: dizziness) Qty: 30 0RF Discontinued metoprolol succinate 25 mg tablet extended release 24 hr 25 mg PO QAM Qty: 90 3RF amlodipine 5 mg tablet 5 mg PO QAM Discharge Orders: Discharge Order (Routine); Ordered 11/02/24 Ordered By: Alonzo Burkett Admission Data Admit Date/Time: 11/01/24 07:28 Attending Provider: Karsten Cottrell Admit Provider: Karsten Cottrell Primary Care Provider: Dyllan Bravo Other Providers: Karsten Cottrell; Luis Shelton; Shady Franco Hospital Stay Data Consultations 11/01/24 06:02 ED Decision to Admit Stat 11/01/24 09:22 Consult Cardiology Routine Consult Neurology Routine Diagnostic Imagining Performed 11/01/24 04:44 CT head/brain wo con Stat Pending Results Patient Have Any Pending Studies at Discharge: No Discharge Instructions Given to Patient (Per Discharging Provider) Metoprolol dosage has been increased to 50 mg daily. Amlodipine has been discontinued. Where outpatient heart monitor as directed and follow-up with primary care provider and efficiency miner blasting as soon as possible. Total Time Total Time Spent Total Time Spent (In Minutes): 50 minutes Coding Level of Care Code 39349 INP/OBS DISCH >30 MIN Diagnoses Atrial fibrillation with rapid ventricular response I48.91 Hypertension I10 Hypertension type: unspecified Pure hypercholesterolemia E78.00 Hyperlipidemia type: pure hypercholesterolemia Intraparenchymal hematoma of brain S06.33AA
[2024-11-02 12:14] VITALS: TEMP 97.7; O2SAT 95
[2024-11-02 12:33] VITALS: BP 134/76
--- NOTE | 2024-11-02 13:16 | Electrocardiogram Report ---
Test Reason : Blood Pressure : */* mmHG Vent. Rate : 60 BPM Atrial Rate : 60 BPM P-R Int : 152 ms QRS Dur : 86 ms QT Int : 422 ms P-R-T Axes : 63 22 8 degrees QTcB Int : 422 ms Sinus rhythm with Premature atrial complexes Otherwise normal ECG When compared with ECG of 01-Nov-2024 06:23, (unconfirmed) Sinus rhythm has replaced Atrial fibrillation Vent. rate has decreased by 29 bpm Borderline criteria for Anterior infarct are no longer Present Confirmed by John Ambrose ([id number]) on 11/02/2024 1:15:45 PM Referred By: REFERRED SELF Confirmed By: John Ambrose
--- NOTE | 2024-11-02 14:39 | XCELERA ---
[id number]
--- NOTE | 2024-11-02 16:04 | Electrocardiogram Report ---
Test Reason : Blood Pressure : */* mmHG Vent. Rate : 103 BPM Atrial Rate : * BPM P-R Int : * ms QRS Dur : 84 ms QT Int : 336 ms P-R-T Axes : * 13 -22 degrees QTcB Int : 440 ms Atrial fibrillation with rapid ventricular response Possible Anterior infarct , age undetermined Abnormal ECG When compared with ECG of 09-May-2024 11:09, Atrial fibrillation has replaced Sinus rhythm Vent. rate has increased by 44 bpm Nonspecific T wave abnormality, worse in Inferior leads Confirmed by John Ambrose ([id number]) on 11/02/2024 4:03:58 PM Referred By: REFERRED SELF Confirmed By: John Ambrose
--- NOTE | 2024-11-02 16:07 | Electrocardiogram Report ---
Test Reason : Blood Pressure : */* mmHG Vent. Rate : 89 BPM Atrial Rate : * BPM P-R Int : * ms QRS Dur : 86 ms QT Int : 352 ms P-R-T Axes : * 20 -3 degrees QTcB Int : 428 ms Atrial fibrillation Possible Anterior infarct (cited on or before 01-Nov-2024) Abnormal ECG When compared with ECG of 01-Nov-2024 04:25, (unconfirmed) Nonspecific T wave abnormality no longer evident in Anterior leads Confirmed by John Ambrose ([id number]) on 11/02/2024 4:07:03 PM Referred By: REFERRED SELF Confirmed By: John Ambrose
[2024-11-03] MEDS ORDERED: METOPROLOL SUCC 50MG EXT REL TAB PO SCH (09:00)
== END 2024-11-02 13:38 | disposition home or self-care (01) | DRG 310 ==
LOC: SUATTDRO → ED 04:22 → 2S 07:28 → INTOOBSV 07:28 → 2S 08:57